=== PATIENT | male | born 1970 | race Two or more races ===

== ENCOUNTER 2021-05-07 15:57 | Inpatient (IN) | payer OTHER ==
[~2021-05-07] VITALS: Ht 165.1 cm; Wt 79.0 kg
[2021-05-07 19:09] LABS: GLUCOMETER DEV NAME(LOC) ERT.5; GLUCOSE,POINT OF CARE 79 MG/DL (70-110)
[2021-05-07 19:19] LABS: BASOPHILS % (AUTO) 0.9 % (0.0-2.0); EOSINOPHILS % (AUTO) 2.4 % (1.0-6.0); HEMATOCRIT 39.6 % (41-53); HEMOGLOBIN 13.3 g/dL (13.5-17.5); LYMPHOCYTES # (AUTO) 1.8 K/uL (1.0-4.8); LYMPHOCYTES % (AUTO) 27.3 % (22.0-44.0); MEAN CORPUSCULAR HEMOGLOBIN 30.4 pg (26.0-34.0); MEAN CORPUSCULAR HGB CONC 33.6 G/dL (31.0-37.0); MEAN CORPUSCULAR VOLUME 90 fL (80-100); MONOCYTES # (AUTO) 0.3 K/uL (0.1-1.0); MONOCYTES % (AUTO) 5.1 % (2.0-9.0); NEUTROPHILS # (AUTO) 4.2 K/uL (1.8-7.7); NEUTROPHILS % (AUTO) 64.3 % (40.0-70.0); PLATELET COUNT (AUTO) 225 K/uL (150-450); RED BLOOD CELL COUNT(AUTO) 4.37 MIL/uL (4.50-5.90); RED CELL DISTRIBUTION WIDTH 14.1 % (11.5-14.5)
[2021-05-07 19:32] LABS: ANION GAP 8 mmol/L (8-16); CALCIUM, TOTAL 9.1 mg/dL (8.8-10.5); CARBON DIOXIDE 28 mmol/L (22-29); CHLORIDE 106 mmol/L (98-107); GLOMERULAR FILTR. RATE CALC > 60 mL/min (>60); GLUCOSE,RANDOM 130 mg/dL (70-110); POTASSIUM 3.4 mmol/L (3.5-5.1); SODIUM SERUM 142 mmol/L (136-145); UREA NITROGEN, BLOOD 15 mg/dL (7-18)
[2021-05-07 19:39] LABS: ALANINE AMINOTRANSFERASE 46 U/L (12-78); ALBUMIN 4.2 g/dL (3.4-5.0); ALKALINE PHOSPHATASE 66 U/L (46-116); ASPARTATE AMINOTRANSFERASE 20 U/L (15-37); BILIRUBIN,TOTAL 0.4 mg/dL (0.1-1.0); TOTAL PROTEIN, SERUM 7.3 g/dL (6.4-8.2)
[2021-05-07 19:47] LABS: COVID AG,FIA SOURCE NASOPHARYNGEAL
[2021-05-07] MEDS ORDERED: ACETAMINOPHEN 325 MG TABLET PO PRN ×2 (20:15→22:15)
[2021-05-07] MEDS ORDERED: ONDANSETRON HCL 4 MG/2 ML VIAL IVP PRN (20:15)
[2021-05-07 20:20] LABS: AMPHET/METH SCREEN,URINE NEGATIVE (NEGATIVE); BARBITURATE SCREEN, URINE NEGATIVE (NEGATIVE); BENZODIAZEPINES SCREEN,URINE NEGATIVE (NEGATIVE); CANNABINOID SCREEN,URINE NEGATIVE (NEGATIVE); COCAINE SCREEN,URINE NEGATIVE (NEGATIVE); METHADONE SCREEN, URINE NEGATIVE (NEGATIVE); OPIATE SCREEN,URINE NEGATIVE (NEGATIVE)
[2021-05-07 20:24] LABS: PHENCYCLIDINE SCREEN,URINE NEGATIVE (NEGATIVE)
[2021-05-07] MEDS ORDERED: ALBUTEROL SULFATE HFA 90 MCG/PUFF 8 GM INHALER IH PRN (22:15)
[2021-05-07] MEDS ORDERED: IBUPROFEN 400 MG TABLET PO PRN (22:15)
[2021-05-07] MEDS ORDERED: CloNIDine HCL 0.1 MG TABLET PO PRN (22:15)
[2021-05-07] MEDS ORDERED: GuaiFENesin/D-METHORPHAN [SUGAR-FREE] 200-20MG/10 ML SYRUP UDCUP PO PRN (22:15)
[2021-05-07] MEDS ORDERED: ONDANSETRON HCL 4 MG TABLET PO PRN (22:15)
[2021-05-07] MEDS ORDERED: MAGNESIUM HYDROXIDE SUSPENSION 30 ML UDCUP PO PRN (22:15)
[2021-05-07] MEDS ORDERED: PETROLATUM,WHITE 28 GM JELLY TP PRN (22:15)
[2021-05-07] MEDS ORDERED: NICOTINE 14 MG/24 HOUR PATCH TD PRN (22:15)
[2021-05-07] MEDS ORDERED: LOPERAMIDE HCL 2 MG CAPSULE PO PRN (22:15)
[2021-05-07] MEDS ORDERED: MAG HYDROX/AL HYDROX/SIMETH ES 30 ML SUSPENSION UDCUP PO PRN (22:15)
[2021-05-07] MEDS ORDERED: DOCUSATE SODIUM 100 MG CAPSULE PO PRN (22:15)
[2021-05-07 23:02] VITALS: BP 131/77
[2021-05-08 00:15] LABS: GLUCOMETER DEV NAME(LOC) 6S.1; GLUCOSE,POINT OF CARE 171 MG/DL (70-110)
[2021-05-08 04:08] VITALS: BP 115/60
[2021-05-08 06:31] LABS: GLUCOMETER DEV NAME(LOC) 6S.1; GLUCOSE,POINT OF CARE 128 MG/DL (70-110)
[2021-05-08 08:33] VITALS: BP 106/76
[2021-05-08] MEDS ORDERED: DEXTROSE 50%-WATER 25 GM/50 ML SYRINGE IVP PRN (10:30)
[2021-05-08] MEDS ORDERED: POTASSIUM CHLORIDE 20 MEQ ER TABLET PO ONE (10:30)
[2021-05-08] MEDS: INSULIN LISPRO 100 UNITS/ML SQ PRN ×3 (11:25→20:16)
[2021-05-08 12:37] LABS: GLUCOMETER DEV NAME(LOC) 6N.1; GLUCOSE,POINT OF CARE 206 MG/DL (70-110)
[2021-05-08 19:19] LABS: GLUCOMETER DEV NAME(LOC) 6N.1; GLUCOSE,POINT OF CARE 177 MG/DL (70-110)
[2021-05-08 19:52] VITALS: BP 142/72
[2021-05-09 01:23] LABS: GLUCOMETER DEV NAME(LOC) 6S.1; GLUCOSE,POINT OF CARE 232 MG/DL (70-110)
[2021-05-09 03:41] VITALS: BP 134/78
[2021-05-09] MEDS: INSULIN LISPRO 100 UNITS/ML SQ PRN ×2 (05:24→11:33)
[2021-05-09 06:30] LABS: GLUCOMETER DEV NAME(LOC) 6N.1; GLUCOSE,POINT OF CARE 163 MG/DL (70-110)
[2021-05-09 07:43] VITALS: BP 122/80
[2021-05-09 12:45] LABS: GLUCOMETER DEV NAME(LOC) 6N.1; GLUCOSE,POINT OF CARE 159 MG/DL (70-110)
== END 2021-05-09 12:12 | DRG 881 ==
LOC: EMS 16:01 → 6S 20:24
PROVIDERS: ADMIT Internal Medicine; ATTEND Internal Medicine
DX: F32.9 Major depressive disorder, single episode, unspecified (principal); R45.851 Suicidal ideations; I69.354 Hemiplegia and hemiparesis following cerebral infarction affecting left non-dominant side; Z20.822 Contact with and (suspected) exposure to COVID-19; F43.21 Adjustment disorder with depressed mood; D63.8 Anemia in other chronic diseases classified elsewhere; E11.9 Type 2 diabetes mellitus without complications; E87.6 Hypokalemia; G83.9 Paralytic syndrome, unspecified; I10 Essential (primary) hypertension
CPT/HCPCS: 80053; 82962; 83036; 85025; 97165; 97535; 99285; G0480

== ENCOUNTER 2021-12-29 22:21 | Inpatient (IN) | payer OTHER ==
[~2021-12-29] VITALS: Ht 175.3 cm; Wt 76.9 kg
[2021-12-29 23:32] LABS: EOSINOPHILS % (AUTO) 3.6 % (1.0-6.0); HEMATOCRIT 37.9 % (41-53); LYMPHOCYTES # (AUTO) 2.5 K/uL (1.0-4.8); MEAN CORPUSCULAR HEMOGLOBIN 30.5 pg (26.0-34.0); MEAN CORPUSCULAR HGB CONC 34.2 G/dL (31.0-37.0); MEAN CORPUSCULAR VOLUME 89 fL (80-100); MONOCYTES # (AUTO) 0.7 K/uL (0.1-1.0); NEUTROPHILS # (AUTO) 5.8 K/uL (1.8-7.7); NEUTROPHILS % (AUTO) 61.4 % (40.0-70.0); PLATELET COUNT (AUTO) 242 K/uL (150-450); RED BLOOD CELL COUNT(AUTO) 4.25 MIL/uL (4.50-5.90); RED CELL DISTRIBUTION WIDTH 13.5 % (11.5-14.5)
[2021-12-29 23:55] LABS: ANION GAP 7 mmol/L (8-16); CALCIUM, TOTAL 9.5 mg/dL (8.8-10.5); CARBON DIOXIDE 32 mmol/L (22-29); CHLORIDE 102 mmol/L (98-107); GLOMERULAR FILTR. RATE CALC > 60 mL/min (>60); GLUCOSE,RANDOM 115 mg/dL (70-110); POTASSIUM 3.5 mmol/L (3.5-5.1); SODIUM SERUM 141 mmol/L (136-145); UREA NITROGEN, BLOOD 17 mg/dL (7-18)
[2021-12-30] MEDS ORDERED: HEPARIN SODIUM,PORCINE 5,000 UNITS/ML VIAL SQ SCH
[2021-12-30 00:01] LABS: ALANINE AMINOTRANSFERASE 25 U/L (12-78); ALBUMIN 3.3 g/dL (3.4-5.0); ALKALINE PHOSPHATASE 96 U/L (46-116); ASPARTATE AMINOTRANSFERASE 21 U/L (15-37); BILIRUBIN,TOTAL 0.1 mg/dL (0.1-1.0); TOTAL PROTEIN, SERUM 6.6 g/dL (6.4-8.2)
[2021-12-30 00:20] LABS: COVID AG,FIA SOURCE NASOPHARYNGEAL
[2021-12-30] MEDS ORDERED: NIZO2SH TP (01:16)
[2021-12-30] MEDS ORDERED: LANS15CA19 PO (01:16)
[2021-12-30] MEDS ORDERED: INSU100V SQ (01:16)
[2021-12-30] MEDS ORDERED: CEFA2PLA9 IVPB (01:16)
[2021-12-30] MEDS ORDERED: ENOX40SY14 SQ (01:16)
[2021-12-30] MEDS ORDERED: CHL25 PO (01:16)
[2021-12-30] MEDS ORDERED: FLUC200T85 PO (01:16)
[2021-12-30] MEDS ORDERED: [UNRECOGNIZED DRUG - CODE] TP (01:16)
[2021-12-30] MEDS ORDERED: INSLAN SQ (01:16)
[2021-12-30] MEDS ORDERED: ATOR40TA28 PO (01:16)
[2021-12-30] MEDS ORDERED: DEXTROSE 50%-WATER 25 GM/50 ML SYRINGE IVP PRN (01:30)
[2021-12-30 01:58] VITALS: BP 129/79
[2021-12-30 02:11] LABS: GLUCOMETER DEV NAME(LOC) 6N.1; GLUCOSE,POINT OF CARE 181 MG/DL (70-110)
[2021-12-30] MEDS ORDERED: SODIUM CHLORIDE 0.9% 500 ML IV ONE (02:14)
[2021-12-30] MEDS ORDERED: ONDANSETRON HCL 4 MG/2 ML VIAL IVP PRN ×2 (02:15)
[2021-12-30] MEDS ORDERED: ACETAMINOPHEN 325 MG TABLET PO PRN (02:15)
[2021-12-30] MEDS: CeFAZolin 2 GM/DEXTROSE 50 ML IV SCH ×3 (02:30→18:09)
[2021-12-30] MEDS: INSULIN LISPRO 100 UNITS/ML SQ PRN ×5 (02:30→20:18)
[2021-12-30] MEDS ORDERED: CEFAZOLIN IV SCH ×2 (03:00)
[2021-12-30] MEDS ORDERED: DEXTROSE IV SCH ×2 (03:00)
[2021-12-30] MEDS ORDERED: PNEUMOCOCCAL VACCINE POLYVALENT 0.5 ML VIAL [PPSV23] IM. ONE (03:15)
[2021-12-30] MEDS: ACETAMINOPHEN 325 MG TABLET PO PRN ×2 (05:41→20:20)
[2021-12-30 05:45] VITALS: BP 120/84
[2021-12-30 06:21] LABS: GLUCOMETER DEV NAME(LOC) 6N.1; GLUCOSE,POINT OF CARE 234 MG/DL (70-110)
[2021-12-30] MEDS: ATORVASTATIN CALCIUM 40 MG TABLET PO SCH (08:02)
[2021-12-30] MEDS: DOCUSATE SODIUM 100 MG CAPSULE PO SCH ×2 (08:02→20:20)
[2021-12-30] MEDS: CHLORTHALIDONE 25 MG TABLET PO SCH (08:02)
[2021-12-30] MEDS: FLUCONAZOLE 200 MG TABLET PO SCH (08:02)
[2021-12-30] MEDS: ENOXAPARIN SODIUM 40 MG/0.4 ML PF SYRINGE SQ SCH (08:03)
[2021-12-30] MEDS: INSULIN GLARGINE,HUM.REC.ANLOG 100 UNITS/ML SQ SCH (08:08)
[2021-12-30 08:30] VITALS: BP 135/78
[2021-12-30 11:56] LABS: GLUCOMETER DEV NAME(LOC) 6N.1; GLUCOSE,POINT OF CARE 214 MG/DL (70-110)
[2021-12-30 15:15] VITALS: BP 124/76
[2021-12-30 18:16] LABS: GLUCOMETER DEV NAME(LOC) 6N.2; GLUCOSE,POINT OF CARE 238 MG/DL (70-110)
[2021-12-30 20:28] VITALS: BP 137/84
[2021-12-30 20:41] LABS: GLUCOMETER DEV NAME(LOC) 6S.1B; GLUCOSE,POINT OF CARE 225 MG/DL (70-110)
[2021-12-31] MEDS: CeFAZolin 2 GM/DEXTROSE 50 ML IV SCH ×3 (02:00→18:00)
[2021-12-31 05:30] VITALS: BP 132/87
[2021-12-31] MEDS: INSULIN LISPRO 100 UNITS/ML SQ PRN ×4 (06:15→20:21)
[2021-12-31 06:16] LABS: GLUCOMETER DEV NAME(LOC) 6S.1B; GLUCOSE,POINT OF CARE 183 MG/DL (70-110)
[2021-12-31 07:55] VITALS: BP 134/84
[2021-12-31] MEDS: ENOXAPARIN SODIUM 40 MG/0.4 ML PF SYRINGE SQ SCH (08:06)
[2021-12-31] MEDS: DOCUSATE SODIUM 100 MG CAPSULE PO SCH ×2 (08:06→20:21)
[2021-12-31] MEDS: CHLORTHALIDONE 25 MG TABLET PO SCH (08:07)
[2021-12-31] MEDS: ATORVASTATIN CALCIUM 40 MG TABLET PO SCH (08:07)
[2021-12-31] MEDS: FLUCONAZOLE 200 MG TABLET PO SCH (08:07)
[2021-12-31] MEDS: INSULIN GLARGINE,HUM.REC.ANLOG 100 UNITS/ML SQ SCH (08:14)
[2021-12-31 14:56] LABS: GLUCOMETER DEV NAME(LOC) 6S.1B; GLUCOSE,POINT OF CARE 288 MG/DL (70-110)
[2021-12-31 16:07] VITALS: BP 123/78
[2021-12-31] MEDS ORDERED: CALAMINE/ZINC OXIDE 177 ML LOTION TP PRN (16:30)
[2021-12-31] MEDS: TraMADol HCL 50 MG TABLET PO PRN (16:41)
[2021-12-31] MEDS ORDERED: PRAMOXINE HCL/CALAMINE 177 ML BOTTLE TP PRN (17:00)
[2021-12-31 19:54] VITALS: BP 111/84
[2021-12-31] MEDS: ACETAMINOPHEN 325 MG TABLET PO PRN (21:46)
[2021-12-31 22:16] LABS: GLUCOMETER DEV NAME(LOC) 6N.1; GLUCOSE,POINT OF CARE 261 MG/DL (70-110)
[2021-12-31 22:16] LABS: GLUCOMETER DEV NAME(LOC) 6N.1; GLUCOSE,POINT OF CARE 250 MG/DL (70-110)
[2022-01-01] MEDS: CeFAZolin 2 GM/DEXTROSE 50 ML IV SCH ×3 (03:55→19:55)
[2022-01-01] MEDS: TraMADol HCL 50 MG TABLET PO PRN ×2 (04:23→16:43)
[2022-01-01 04:53] VITALS: BP 108/66
[2022-01-01] MEDS: INSULIN LISPRO 100 UNITS/ML SQ PRN ×4 (05:27→20:07)
[2022-01-01 07:40] VITALS: BP 132/81
[2022-01-01 07:56] LABS: GLUCOMETER DEV NAME(LOC) 6N.1; GLUCOSE,POINT OF CARE 193 MG/DL (70-110)
[2022-01-01] MEDS: FLUCONAZOLE 200 MG TABLET PO SCH (09:22)
[2022-01-01] MEDS: DOCUSATE SODIUM 100 MG CAPSULE PO SCH ×2 (09:22→19:55)
[2022-01-01] MEDS: ATORVASTATIN CALCIUM 40 MG TABLET PO SCH (09:22)
[2022-01-01] MEDS: CHLORTHALIDONE 25 MG TABLET PO SCH (09:22)
[2022-01-01] MEDS: INSULIN GLARGINE,HUM.REC.ANLOG 100 UNITS/ML SQ SCH (09:30)
[2022-01-01 11:41] LABS: GLUCOMETER DEV NAME(LOC) 6N.2; GLUCOSE,POINT OF CARE 243 MG/DL (70-110)
[2022-01-01 15:17] VITALS: BP 128/83
[2022-01-01 17:22] LABS: GLUCOMETER DEV NAME(LOC) 6N.1; GLUCOSE,POINT OF CARE 238 MG/DL (70-110)
[2022-01-01] MEDS: ACETAMINOPHEN 325 MG TABLET PO PRN (20:08)
[2022-01-01 20:28] VITALS: BP 132/77
[2022-01-02] MEDS: CeFAZolin 2 GM/DEXTROSE 50 ML IV SCH ×3 (02:09→18:28)
[2022-01-02 04:45] VITALS: BP 129/76
[2022-01-02] MEDS: INSULIN LISPRO 100 UNITS/ML SQ PRN ×4 (06:01→19:59)
[2022-01-02 06:06] LABS: GLUCOMETER DEV NAME(LOC) 6N.2; GLUCOSE,POINT OF CARE 255 MG/DL (70-110)
[2022-01-02 06:31] LABS: GLUCOMETER DEV NAME(LOC) 6N.1; GLUCOSE,POINT OF CARE 176 MG/DL (70-110)
[2022-01-02 08:09] VITALS: BP 139/59
[2022-01-02] MEDS: FLUCONAZOLE 200 MG TABLET PO SCH (08:19)
[2022-01-02] MEDS: CHLORTHALIDONE 25 MG TABLET PO SCH (08:19)
[2022-01-02] MEDS: ATORVASTATIN CALCIUM 40 MG TABLET PO SCH (08:20)
[2022-01-02] MEDS: DOCUSATE SODIUM 100 MG CAPSULE PO SCH ×2 (08:20→19:55)
[2022-01-02] MEDS: INSULIN GLARGINE,HUM.REC.ANLOG 100 UNITS/ML SQ SCH (08:25)
[2022-01-02] MEDS: TraMADol HCL 50 MG TABLET PO PRN ×2 (10:50→19:54)
[2022-01-02 12:45] LABS: GLUCOMETER DEV NAME(LOC) 6N.2; GLUCOSE,POINT OF CARE 278 MG/DL (70-110)
[2022-01-02 15:52] VITALS: BP 136/90
[2022-01-02 18:46] LABS: GLUCOMETER DEV NAME(LOC) 6N.1; GLUCOSE,POINT OF CARE 182 MG/DL (70-110)
[2022-01-02 19:45] VITALS: BP 141/86
[2022-01-02 20:16] LABS: GLUCOMETER DEV NAME(LOC) 6N.2; GLUCOSE,POINT OF CARE 256 MG/DL (70-110)
[2022-01-03] MEDS: ACETAMINOPHEN 325 MG TABLET PO PRN ×3 (00:17→18:48)
[2022-01-03] MEDS: CeFAZolin 2 GM/DEXTROSE 50 ML IV SCH ×3 (02:58→18:21)
[2022-01-03 05:20] VITALS: BP 136/97
[2022-01-03 05:51] LABS: GLUCOMETER DEV NAME(LOC) 6N.2; GLUCOSE,POINT OF CARE 139 MG/DL (70-110)
[2022-01-03 07:53] VITALS: BP 116/76
[2022-01-03] MEDS: ATORVASTATIN CALCIUM 40 MG TABLET PO SCH (08:31)
[2022-01-03] MEDS: CHLORTHALIDONE 25 MG TABLET PO SCH (08:31)
[2022-01-03] MEDS: FLUCONAZOLE 200 MG TABLET PO SCH (08:31)
[2022-01-03] MEDS: DOCUSATE SODIUM 100 MG CAPSULE PO SCH ×2 (08:31→20:03)
[2022-01-03] MEDS: MULTIVITAMINS WITH MINERALS, THERAPEUTIC TABLET PO SCH (08:31)
[2022-01-03] MEDS: INSULIN GLARGINE,HUM.REC.ANLOG 100 UNITS/ML SQ SCH (08:35)
[2022-01-03] MEDS: INSULIN LISPRO 100 UNITS/ML SQ PRN ×3 (11:26→20:03)
[2022-01-03 12:11] LABS: GLUCOMETER DEV NAME(LOC) 6N.1; GLUCOSE,POINT OF CARE 233 MG/DL (70-110)
[2022-01-03 16:05] VITALS: BP 122/49
[2022-01-03 17:31] LABS: GLUCOMETER DEV NAME(LOC) 6N.2; GLUCOSE,POINT OF CARE 209 MG/DL (70-110)
[2022-01-03 19:42] VITALS: BP 134/84
[2022-01-03] MEDS: TraMADol HCL 50 MG TABLET PO PRN (22:23)
[2022-01-03] MEDS ORDERED: ZOLPIDEM TARTRATE 5 MG TABLET PO PRN (23:30)
[2022-01-04] MEDS: CeFAZolin 2 GM/DEXTROSE 50 ML IV SCH ×3 (02:24→18:13)
[2022-01-04] MEDS: INSULIN LISPRO 100 UNITS/ML SQ PRN ×4 (05:43→20:57)
[2022-01-04 05:46] VITALS: BP 136/92
[2022-01-04 07:30] VITALS: BP 139/91
[2022-01-04] MEDS: TraMADol HCL 50 MG TABLET PO PRN ×2 (07:31→20:57)
[2022-01-04] MEDS: CHLORTHALIDONE 25 MG TABLET PO SCH (08:13)
[2022-01-04] MEDS: ATORVASTATIN CALCIUM 40 MG TABLET PO SCH (08:13)
[2022-01-04] MEDS: MULTIVITAMINS WITH MINERALS, THERAPEUTIC TABLET PO SCH (08:13)
[2022-01-04] MEDS: FLUCONAZOLE 200 MG TABLET PO SCH (08:13)
[2022-01-04] MEDS: DOCUSATE SODIUM 100 MG CAPSULE PO SCH ×2 (08:13→20:57)
[2022-01-04] MEDS: INSULIN GLARGINE,HUM.REC.ANLOG 100 UNITS/ML SQ SCH (08:25)
[2022-01-04 10:26] LABS: GLUCOMETER DEV NAME(LOC) 6N.2; GLUCOSE,POINT OF CARE 228 MG/DL (70-110)
[2022-01-04 10:26] LABS: GLUCOMETER DEV NAME(LOC) 6N.2; GLUCOSE,POINT OF CARE 181 MG/DL (70-110)
[2022-01-04 12:06] LABS: GLUCOMETER DEV NAME(LOC) 6N.1; GLUCOSE,POINT OF CARE 245 MG/DL (70-110)
[2022-01-04 15:24] VITALS: BP 127/90
[2022-01-04 20:12] VITALS: BP 117/79
[2022-01-04 21:21] LABS: GLUCOMETER DEV NAME(LOC) 6N.1; GLUCOSE,POINT OF CARE 266 MG/DL (70-110)
[2022-01-04 21:21] LABS: GLUCOMETER DEV NAME(LOC) 6N.1; GLUCOSE,POINT OF CARE 205 MG/DL (70-110)
[2022-01-04] MEDS: ACETAMINOPHEN 325 MG TABLET PO PRN (23:19)
[2022-01-05] MEDS: CeFAZolin 2 GM/DEXTROSE 50 ML IV SCH ×3 (02:59→18:24)
[2022-01-05 04:14] VITALS: BP 141/87
[2022-01-05] MEDS: INSULIN LISPRO 100 UNITS/ML SQ PRN ×4 (05:41→21:13)
[2022-01-05 05:56] LABS: GLUCOMETER DEV NAME(LOC) 6N.2; GLUCOSE,POINT OF CARE 174 MG/DL (70-110)
[2022-01-05 07:58] VITALS: BP 130/91
[2022-01-05] MEDS: CHLORTHALIDONE 25 MG TABLET PO SCH (08:05)
[2022-01-05] MEDS: MULTIVITAMINS WITH MINERALS, THERAPEUTIC TABLET PO SCH (08:05)
[2022-01-05] MEDS: FLUCONAZOLE 200 MG TABLET PO SCH (08:05)
[2022-01-05] MEDS: ATORVASTATIN CALCIUM 40 MG TABLET PO SCH (08:05)
[2022-01-05] MEDS: DOCUSATE SODIUM 100 MG CAPSULE PO SCH ×2 (08:05→21:09)
[2022-01-05] MEDS: INSULIN GLARGINE,HUM.REC.ANLOG 100 UNITS/ML SQ SCH (08:11)
[2022-01-05] MEDS ORDERED: SODIUM CHLORIDE 0.9% 1,000 ML ONE (11:22)
[2022-01-05 12:26] LABS: GLUCOMETER DEV NAME(LOC) 6N.2; GLUCOSE,POINT OF CARE 273 MG/DL (70-110)
[2022-01-05] MEDS: TraMADol HCL 50 MG TABLET PO PRN (12:45)
[2022-01-05 15:58] VITALS: BP 118/83
[2022-01-05 20:50] VITALS: BP 127/77
[2022-01-05] MEDS: ACETAMINOPHEN 325 MG TABLET PO PRN (21:09)
[2022-01-06 00:41] LABS: GLUCOMETER DEV NAME(LOC) 6N.2; GLUCOSE,POINT OF CARE 243 MG/DL (70-110)
[2022-01-06 00:45] LABS: GLUCOMETER DEV NAME(LOC) 6N.2; GLUCOSE,POINT OF CARE 190 MG/DL (70-110)
[2022-01-06] MEDS: CeFAZolin 2 GM/DEXTROSE 50 ML IV SCH ×2 (02:05→10:13)
[2022-01-06 04:48] VITALS: BP 126/75
[2022-01-06] MEDS: INSULIN LISPRO 100 UNITS/ML SQ PRN ×2 (05:32→12:10)
[2022-01-06] MEDS: TraMADol HCL 50 MG TABLET PO PRN (05:42)
[2022-01-06 06:45] LABS: GLUCOMETER DEV NAME(LOC) 6N.1; GLUCOSE,POINT OF CARE 182 MG/DL (70-110)
[2022-01-06 08:21] VITALS: BP 150/90
[2022-01-06] MEDS: FLUCONAZOLE 200 MG TABLET PO SCH (08:31)
[2022-01-06] MEDS: ATORVASTATIN CALCIUM 40 MG TABLET PO SCH (08:31)
[2022-01-06] MEDS: CHLORTHALIDONE 25 MG TABLET PO SCH (08:31)
[2022-01-06] MEDS: MULTIVITAMINS WITH MINERALS, THERAPEUTIC TABLET PO SCH (08:31)
[2022-01-06] MEDS: DOCUSATE SODIUM 100 MG CAPSULE PO SCH (08:32)
[2022-01-06] MEDS: INSULIN GLARGINE,HUM.REC.ANLOG 100 UNITS/ML SQ SCH (08:33)
[2022-01-06 11:59] LABS: BASOPHILS % (AUTO) 1.1 % (0.0-2.0); EOSINOPHILS % (AUTO) 5.1 % (1.0-6.0); HEMATOCRIT 39.4 % (41-53); HEMOGLOBIN 13.8 g/dL (13.5-17.5); LYMPHOCYTES # (AUTO) 2.1 K/uL (1.0-4.8); MEAN CORPUSCULAR HEMOGLOBIN 30.9 pg (26.0-34.0); MEAN CORPUSCULAR VOLUME 88 fL (80-100); MONOCYTES # (AUTO) 0.4 K/uL (0.1-1.0); MONOCYTES % (AUTO) 5.6 % (2.0-9.0); NEUTROPHILS # (AUTO) 4.2 K/uL (1.8-7.7); NEUTROPHILS % (AUTO) 59.2 % (40.0-70.0); PLATELET COUNT (AUTO) 216 K/uL (150-450); RED BLOOD CELL COUNT(AUTO) 4.46 MIL/uL (4.50-5.90); RED CELL DISTRIBUTION WIDTH 13.6 % (11.5-14.5)
[2022-01-06 12:51] LABS: ALANINE AMINOTRANSFERASE 23 U/L (12-78); ALBUMIN 3.2 g/dL (3.4-5.0); ALKALINE PHOSPHATASE 100 U/L (46-116); ANION GAP 7 mmol/L (8-16); ASPARTATE AMINOTRANSFERASE 17 U/L (15-37); BILIRUBIN,TOTAL 0.2 mg/dL (0.1-1.0); C-REACTIVE PROTEIN QUANT 0.16 mg/dL (0.00-0.30); CALCIUM, TOTAL 8.9 mg/dL (8.8-10.5); CARBON DIOXIDE 31 mmol/L (22-29); CHLORIDE 97 mmol/L (98-107); CREATININE 0.67 mg/dL (0.60-1.30); GLOMERULAR FILTR. RATE CALC > 60 mL/min (>60); GLUCOSE,RANDOM 262 mg/dL (70-110); POTASSIUM 3.9 mmol/L (3.5-5.1); SODIUM SERUM 135 mmol/L (136-145); TOTAL PROTEIN, SERUM 6.4 g/dL (6.4-8.2); UREA NITROGEN, BLOOD 18 mg/dL (7-18)
[2022-01-06 13:08] LABS: ERYTHROCYTE SEDIMENTATION RATE 5 MM/HR (0-15)
[2022-01-06 13:56] LABS: GLUCOMETER DEV NAME(LOC) 6N.1; GLUCOSE,POINT OF CARE 248 MG/DL (70-110)
[2022-01-06 15:44] VITALS: BP 117/76
[2022-01-06 18:22] LABS: GLUCOMETER DEV NAME(LOC) 6N.1; GLUCOSE,POINT OF CARE 216 MG/DL (70-110)
== END 2022-01-06 18:15 | DRG 871 ==
LOC: EMS 22:23 → 6S 23:00
PROVIDERS: ADMIT Internal Medicine; ATTEND Internal Medicine
DX: A41.01 Sepsis due to Methicillin susceptible Staphylococcus aureus (principal); B38.4 Coccidioidomycosis meningitis; I69.354 Hemiplegia and hemiparesis following cerebral infarction affecting left non-dominant side; E11.65 Type 2 diabetes mellitus with hyperglycemia; I10 Essential (primary) hypertension; Z20.822 Contact with and (suspected) exposure to COVID-19; K21.9 Gastro-esophageal reflux disease without esophagitis; Z86.61 Personal history of infections of the central nervous system; Z79.4 Long term (current) use of insulin; Z88.8 Allergy status to other drugs, medicaments and biological substances
CPT/HCPCS: 71046; 80053; 82962; 85025; 85651; 86140; 87040; 87081; 97110; 97112; 97116; 97162; 97166; 97530; 97535; 99285; J0690; J1644; J1650; J1815; J7030; J7040; 36415-L1; 36415-TC